=== PATIENT | female | born 1990 | race Caucasian/White ===

== ENCOUNTER → 2017-03-14 | Outpatient (CLI) | payer OTHER | END | disposition home or self-care (01) | LOC: C.LABSPEC 13:59 | PROVIDERS: ATTEND Obstetrics & Gynecology | DX: O09.291 Supervision of pregnancy with other poor reproductive or obstetric history, first trimester (principal) ==

== ENCOUNTER 2017-03-20 17:41 | Emergency (ER) | payer OTHER ==
[~2017-03-20] VITALS: Ht 157.5 cm; Wt 104.0 kg
[2017-03-20 17:53] VITALS: Ht 157.5 cm; Wt 104.0 kg
[2017-03-20 18:40] LABS: BASO % 0.3 %; BASO ABS # 0.03 K/uL (0-0.2); EOS % 1.3 %; EOS ABS # 0.13 K/uL (0-0.5); HEMATOCRIT 42.6 % (37-47); IG# 0.01 K/uL (0.00-0.02); LYMPH % 19.5 %; MEAN CELL VOLUME 88.6 fL (80-100); MEAN CORPUSCULAR HEMOGLOBIN 31.2 pg (25-34); MEAN CORPUSCULAR HGB CONC 35.2 g/dl (32-36); MEAN PLATELET VOLUME 9.9 fL (7.4-10.4); MONO % 3.5 %; MONO ABS # 0.36 K/uL (0.11-0.59); NEUT % 75.3 %; NEUT ABS # 7.71 K/uL (1.4-6.5); PLATELET COUNT 326 K/uL (130-400); RED CELL DISTRIBUTION WIDTH CV 12.3 % (11.5-14.5); RED CELL DISTRIBUTION WIDTH SD 39.5 fL (36.4-46.3); WHITE BLOOD COUNT 10.24 K/uL (4.8-10.8)
[2017-03-20 19:00] LABS: CALCIUM 9.6 mg/dl (8.5-10.1); CREATININE 0.74 mg/dl (0.60-1.20); POTASSIUM 3.4 mmol/L (3.5-5.1)
--- NOTE | 2017-03-20 19:55 | DIAGNOSTIC IMAGING REPORT ---
ULTRASOUND FIRST TRIMESTER CLINICAL HISTORY: EVAL IUP, CRAMPING AND BLEEDING COMPARISON STUDY: None. FINDINGS: Trace fluid within the cervical canal. The ovaries are within normal limits. The 1.9 cm left ovarian cyst. There is a slightly irregular-appearing intrauterine gestational sac measuring a mean sac diameter of 7 weeks and 1 day. There is no pole or yolk sac identified this time. There are internal echoes seen within the gestational sac. The gestational sac is also slightly low-lying within the uterine cavity. IMPRESSION: There is a 7 week and 1 day slightly irregular appearing intrauterine gestational sac. There is no pole or yolk sac identified this time. Therefore, this is suggestive of a probable failed . Follow-up beta-hCG and/or pelvic ultrasound follow-up in one week can be used for confirmation. Gynecologic consultation is also recommended. Electronically signed by: Sarthak Chopra M.D. 03/20/2017 7:54 PM Dictated Date/Time: 03/20/2017 7:50 PM
--- NOTE | 2017-03-20 20:24 | EMERGENCY ROOM VISIT NOTE ---
ED Visit Note First contact with patient: 17:53 CHIEF COMPLAINT: Back and abdominal cramping, vaginal bleeding since this morning HISTORY OF PRESENT ILLNESS: Patient is a G2 0 Ab1 roughly 11 and half week 26-year-old white female who presents to the emergency department to come in by family for evaluation of cramping and vaginal bleeding. Patient estimates her last menstrual period to be 12/29/2016. She reports that she had her nurse visit with [facility] this past Tuesday, and is scheduled to see the physician this Tuesday, 03/25 for her first obstetric visit and examination. Patient notes that she has had bad low back and suprapubic cramping for most of the day. The cramping has worsened as the day has gone on. She has tried taking a bath in a hot shower and walking without relief of her symptoms. She rates her discomfort a 6/10. She has noted some bright red vaginal bleeding with wiping throughout the day. She has not had to wear a pad. She is not passing clots. She has not taken any medication for her symptoms. She reports that her first also ended in a miscarriage in the first trimester. The patient reports that she was seen in the emergency department in [facility] on 02/16 where she had some blood work and an informal ultrasound performed. She states that they could see "a heartbeat." She is Rh- and was administered RhoGAM at that time. She denies that she was having bleeding then. She denies any heavy lifting, abdominal trauma or unusual activity. No recent intercourse. REVIEW OF SYSTEMS: Review of systems as per HPI. All other systems reviewed were negative. 10 systems reviewed. PMH: Electronic medical records are reviewed and summarized as above/below. See Problem List. SOCIAL HISTORY: Patient lives at home. She is employed in the [employer] industry. Quit smoking when she found out she was . PHYSICAL EXAM: Vital Signs: Reviewed Nurse's notes. CONSTITUTIONAL: Patient is slightly anxious, otherwise well-appearing 26-year- old white female who is awake and alert and in no acute distress. Vital signs are stable. EYES: Pupils equal, round, reactive to light and accommodation. EOMs intact without nystagmus. Sclera are anicteric. ENT: Tympanic membranes intact, with normal landmarks. External canals are clear. Oral and nasopharynx are clear. Mucous membranes are moist, no lesions , tongue and gums appear normal. NECK: No bruits auscultated. Supple without lymphadenopathy. No thyromegaly. No meningeal signs. Full active range of motion without discomfort. CARDIOVASCULAR: Regular rate and rhythm, with normal S1 and S2, no murmur or gallop or rub is heard. No carotid bruits auscultated. No JVD. Peripheral pulses easily palpable. RESPIRATORY: Breath sounds equal and clear to auscultation without wheezes, rales, or rhonchi heard. Full and equal chest expansion without accessory muscle use or retractions. ABDOMEN: Bowel sounds are present. Abdomen is soft, mildly tender in the suprapubic region, no guarding, rebound or rigidity. INTEGUMENTARY: No lesions or rash, normal skin turgor. LYMPH: No lymphadenopathy. EMERGENCY DEPARTMENT COURSE: The patient was seen and evaluated as above. She has no old records at our facility for review. IV lock was initiated and laboratory studies were collected including CBC with differential, BMP and quantitative hCG. Urinalysis was also collected. Laboratory studies revealed a normal white count. She is not anemic. Electrolytes are unremarkable. Quantitative hCG is 6379. Urinalysis is indicative of contamination. Patient was offered but declined medication for discomfort. Pelvic ultrasound was performed to evaluate for intrauterine . Findings are as noted below. There is a irregular, low-lying intrauterine gestational sac measuring 7 weeks 1 day with no pole identified, suggestive of a failed . All laboratory and diagnostic imaging studies were reviewed with attending physician, and discussed with the patient. I did also review the patient with [facility], Dr. Mendoza. She was in agreement with a dose of Rhogam, and states that the office will contact the patient to arrange a follow-up appointment. All laboratory and diagnostic imaging studies were reviewed with the patient. She was made aware that she should expect a call from the DRAWING CHECKER office to arrange a follow-up appointment. She was administered RhoGAM, observed and then discharged. Bleeding precautions were outlined with the patient. She reports that she will use ibuprofen for discomfort. The patient was discharged home with her family member in stable condition. Medication reconciliation: I attest that I have personally reviewed the patient' s current medication list. Blood pressure screening: Patient was found to have a slightly elevated blood pressure due to circumstances. I do not believe that the patient requires hypertension monitoring. Differential diagnoses entertained included dysmenorrhea, missed , spontaneous , subchorionic hemorrhage, coagulopathy, placental abruption , placenta previa, among others. ULTRASOUND FIRST TRIMESTER CLINICAL HISTORY: EVAL IUP, CRAMPING AND BLEEDING COMPARISON STUDY: None. FINDINGS: Trace fluid within the cervical canal. The ovaries are within normal limits. The 1.9 cm left ovarian cyst. There is a slightly irregular-appearing intrauterine gestational sac measuring a mean sac diameter of 7 weeks and 1 day. There is no pole or yolk sac identified this time. There are internal echoes seen within the gestational sac. The gestational sac is also slightly low-lying within the uterine cavity. IMPRESSION: There is a 7 week and 1 day slightly irregular appearing intrauterine gestational sac. There is no pole or yolk sac identified this time. Therefore, this is suggestive of a probable failed . Follow-up beta-hCG and/or pelvic ultrasound follow-up in one week can be used for confirmation. Gynecologic consultation is also recommended. Problem List Surgical Problems: (1) History of oral surgery Status: Resolved Allergies Coded Allergies: Sulfamethoxazole w/Trimethoprim (Verified Allergy, Intermediate, rash, ) Vital Signs Date Time Temp Pulse Resp B/P (MAP) Pulse Ox O2 Delivery O2 Flow Rate FiO2 03/20/17 20:52 36.7 98 18 124/72 97 Room Air 03/20/17 20:29 36.7 100 18 135/87 97 03/20/17 19:26 36.7 102 18 142/90 97 Room Air 03/20/17 17:53 36.9 99 18 146/93 94 Room Air Laboratory Results 03/20/17 18:28 Red Blood Count 4.81, Mean Corpuscular Volume 88.6, Mean Corpuscular Hemoglobin 31.2, Mean Corpuscular Hemoglobin Concent 35.2, Mean Platelet Volume 9.9, Neutrophils (%) (Auto) 75.3, Lymphocytes (%) (Auto) 19.5, Monocytes (%) (Auto) 3.5, Eosinophils (%) (Auto) 1.3, Basophils (%) (Auto) 0.3, Neutrophils # (Auto) 7.71, Lymphocytes # (Auto) 2.00, Monocytes # (Auto) 0.36, Eosinophils # (Auto) 0.13, Basophils # (Auto) 0.03 03/20/17 18:28 Test 03/20/17 18:28 03/20/17 18:30 White Blood Count 10.24 K/uL (4.8-10.8) Red Blood Count 4.81 M/uL (4.2-5.4) Hemoglobin 15.0 g/dL (12.0-16.0) Hematocrit 42.6 % (37-47) Mean Corpuscular Volume 88.6 fL (80-100) Mean Corpuscular Hemoglobin 31.2 pg (25-34) Mean Corpuscular Hemoglobin Concent 35.2 g/dl (32-36) Platelet Count 326 K/uL (130-400) Mean Platelet Volume 9.9 fL (7.4-10.4) Neutrophils (%) (Auto) 75.3 % Lymphocytes (%) (Auto) 19.5 % Monocytes (%) (Auto) 3.5 % Eosinophils (%) (Auto) 1.3 % Basophils (%) (Auto) 0.3 % Neutrophils # (Auto) 7.71 K/uL (1.4-6.5) Lymphocytes # (Auto) 2.00 K/uL (1.2-3.4) Monocytes # (Auto) 0.36 K/uL (0.11-0.59) Eosinophils # (Auto) 0.13 K/uL (0-0.5) Basophils # (Auto) 0.03 K/uL (0-0.2) RDW Standard Deviation 39.5 fL (36.4-46.3) RDW Coefficient of Variation 12.3 % (11.5-14.5) Immature Granulocyte % (Auto) 0.1 % Immature Granulocyte # (Auto) 0.01 K/uL (0.00-0.02) Anion Gap 9.0 mmol/L (3-11) Est Creatinine Clear Calc Drug Dose 128.1 ml/min Estimated GFR () 127.8 Estimated GFR (Non- 110.3 BUN/Creatinine Ratio 10.0 (10-20) Calcium Level 9.6 mg/dl (8.5-10.1) Human Chorionic Gonadotropin, Quant 6379 mIU/mL Urine Color YELLOW Urine Appearance CLEAR (CLEAR) Urine pH 5.5 (4.5-7.5) Urine Specific Potter 1.013 (1.000-1.030) Urine Protein NEG (NEG) Urine Glucose (UA) NEG (NEG) Urine Ketones 1+ (NEG) Urine Occult Blood NEG (NEG) Urine Nitrite NEG (NEG) Urine Bilirubin NEG (NEG) Urine Urobilinogen NEG (NEG) Urine Leukocyte Esterase TRACE (NEG) Urine WBC (Auto) 5-10 /hpf (0-5) Urine RBC (Auto) 0-4 /hpf (0-4) Urine Hyaline Casts (Auto) 1-5 /lpf (0-5) Urine Epithelial Cells (Auto) >30 /lpf (0-5) Urine Bacteria (Auto) 1+ (NEG) Departure Information Impression Primary Impression: Spontaneous miscarriage Referrals No Doctor, Assigned (PCP) Sindy Waters D.O. Patient Instructions My [facility] Additional Instructions Ibuprofen(Motrin, Advil) may be used for fever or pain. Use 600mg every six hours as needed. Take with food. Avoid using more than 2400mg in a 24 hour period. Do not use 2400mg per day for more than three consecutive days without physician direction. Prolonged inappropriate use can lead to stomach upset or ulcers. (AND/OR) Acetaminophen(Tylenol) may be used for fever or pain. Use 1000mg every six hours as needed. Avoid using more than 3000mg in a 24 hour period. Heating pad to the abdomen as needed for discomfort. Rest and avoid any heavy lifting or strenuous activity. Strict vaginal rest-no tampons, douching or intercourse. Drink plenty of fluids. Diet as tolerated. [facility] will contact you tomorrow to arrange a follow up appointment. Return to the ED for worsening pain, heavier bleeding (soaking a pad in less than one hour, passing clots larger than your fist), lightheadedness, dizziness , passing out, worsening of your condition or as needed.
[2017-03-20 20:29] VITALS: BP 135/87; PULSE 100; TEMP 36.7; O2SAT 97
[2017-03-20 20:52] VITALS: BP 124/72; PULSE 98; TEMP 36.7; O2SAT 97
== END 2017-03-20 20:58 | disposition home or self-care (01) ==
LOC: C.EDB 17:43 → C.EDC 20:58
DX: O03.9 Complete or unspecified spontaneous abortion without complication (principal); Z3A.11 11 weeks gestation of pregnancy; Z87.891 Personal history of nicotine dependence; Z98.890 Other specified postprocedural states